=== PATIENT | male | born 1950 | race Caucasian/White ===

== ENCOUNTER → 2016-11-27 | Outpatient (CLI) | payer OTHER ==
[~2016-11-27] MED LIST: CEPH-368 PO; GABA300C10 PO; HYDR2TAB40 PO; METF10002 PO; ONDA4TAB7 PO; OXYC-302 PO; OXYC1TAB7 PO; SAXA5TAB PO
[2016-11-27 15:43] LABS: BLOOD UREA NITROGEN 22 mg/dL (7-18)
[2016-11-27 15:47] LABS: ASPARTATE AMINO TRANSFERASE 18 U/L (15-37)
== END | disposition home or self-care (01) ==
LOC: STAR 14:53
PROVIDERS: ATTEND Orthopaedic Surgery Orthopaedic Surgery of the Spine
DX: Z01.818 Encounter for other preprocedural examination (principal); I51.5 Myocardial degeneration
CPT/HCPCS: 36415; 71020; 80053; 81003; 85025; 85610; 85730; 93005

== ENCOUNTER 2016-12-02 08:51 | Day surgery (SDC) | payer OTHER ==
[2016-11-30 09:49] VITALS: BP 136/82
[~2016-12-02] VITALS: Ht 167.6 cm; Wt 84.0 kg
[~2016-12-02 08:51] MED LIST changes: +ATOR10TA9 PO; +BUPIVACAINE/PF-EPI 0.25% 1:200K ONE; +CHOL20003 PO; +CYAN10005 PO; +GLIP5TAB10 PO; +LIDOCAINE 0.5%-EPI 1:200K, 50ML ONE; +THROMBIN 5,000 UNIT VIAL TP ONE; +VANCOMYCIN 1,000 MG ONE
[2016-12-02] MEDS ORDERED: LACTATED RINGERS 1,000 ML IV SCH (09:24)
[2016-12-02 09:30] VITALS: BP 136/82
[2016-12-02] MEDS ORDERED: FENTANYL PF 250 MCG/5ML ONE (09:41)
[2016-12-02] MEDS ORDERED: PROPOFOL 10 MG/ML, 20ML ONE (10:32)
[2016-12-02] MEDS ORDERED: CEFAZOLIN 1,000 MG ONE (10:32)
[2016-12-02] MEDS ORDERED: ROCURONIUM 10 MG/ML ONE (10:32)
[2016-12-02] MEDS ORDERED: DEXAMETHASONE 4 MG/ML, 1ML ONE (10:32)
[2016-12-02] MEDS ORDERED: ONDANSETRON 2MG/ML, 2ML ONE (10:32)
[2016-12-02] MEDS ORDERED: MEPERIDINE/PF 25MG/0.5ML IVPush PRN (12:30)
[2016-12-02] MEDS ORDERED: hydrALAzine 20 MG/ML, 1ML IV PRN (12:30)
[2016-12-02] MEDS ORDERED: METOPROLOL 1 MG/ML, 5ML IV PRN (12:30)
[2016-12-02] MEDS ORDERED: HYDROcodone/APAP 7.5-325MG/15ML UDC PO PRN (12:30)
[2016-12-02] MEDS ORDERED: ACETAMINOPHEN 325 MG TABLET PO PRN (12:30)
[2016-12-02] MEDS ORDERED: ALBUTEROL/IPRATROPIUM 2.5MG/0.5MG, 3 ML NPPB PRN (12:30)
[2016-12-02] MEDS ORDERED: FENTANYL PF 100 MCG/2ML ONE ×2 (13:14→14:51)
[2016-12-02] MEDS ORDERED: HYDROcodone/APAP 7.5-325MG/15ML UDC ONE (13:15)
[2016-12-02] MEDS: FENTANYL PF 100 MCG/2ML IV PRN ×4 (13:18→15:03)
[2016-12-02] MEDS: HYDROmorphone 1 MG/ML, 1ML IV PRN ×4 (13:21→14:05)
[2016-12-02] MEDS ORDERED: DIAZEPAM 5 MG/ML, 2ML ONE (13:22)
[2016-12-02] MEDS ORDERED: HYDROmorphone 1 MG/ML, 1ML ONE ×2 (13:28→13:45)
[2016-12-02] MEDS ORDERED: DIAZEPAM 5 MG/ML, 2ML IV PRN ×2 (13:30→14:30)
[2016-12-02] MEDS ORDERED: hydrALAzine 20 MG/ML, 1ML ONE (14:25)
[2016-12-02] MEDS ORDERED: OXYcodone/APAP 10/325MG TABLET ONE (17:05)
[2016-12-02] MEDS ORDERED: ONDANSETRON 2MG/ML, 2ML IVPush PRN (17:30)
[2016-12-02] MEDS ORDERED: OXYcodone/APAP 10/325MG TABLET PO PRN (17:30)
== END 2016-12-02 18:50 | disposition home or self-care (01) ==
LOC: OUT 08:51
PROVIDERS: ATTEND Orthopaedic Surgery Orthopaedic Surgery of the Spine
DX: M51.16 Intervertebral disc disorders with radiculopathy, lumbar region (principal); E78.5 Hyperlipidemia, unspecified; E11.9 Type 2 diabetes mellitus without complications; Z88.3 Allergy status to other anti-infective agents; M19.90 Unspecified osteoarthritis, unspecified site; Z79.84 Long term (current) use of oral hypoglycemic drugs
CPT/HCPCS: 63030; 63042; 72100; 82962; J0360; J0690; J1100; J1170; J2405; J2704; J3010; J3360; J3370; J7120

== ENCOUNTER 2018-06-28 05:08 | Inpatient (IN) | payer MEDICARE ==
[~2018-06-28] VITALS: Ht 167.6 cm; Wt 78.9 kg
[~2018-06-28 05:08] MED LIST changes: -BUPIVACAINE/PF-EPI 0.25% 1:200K ONE; +CHOL2000 PO; -CHOL20003 PO; -LIDOCAINE 0.5%-EPI 1:200K, 50ML ONE; +LISI2.5T PO; +TAMS-11 PO; -THROMBIN 5,000 UNIT VIAL TP ONE; -VANCOMYCIN 1,000 MG ONE
[2018-06-28] MEDS ORDERED: HYDROmorphone 2 MG/ML, 1ML ONE ×2 (05:24→07:22)
[2018-06-28] MEDS ORDERED: ACETAMINOPHEN 325 MG TABLET ONE (05:24)
[2018-06-28] MEDS ORDERED: HYDROmorphone 2 MG/ML, 1ML IV ONE ×2 (05:30→07:30)
[2018-06-28] MEDS ORDERED: SODIUM CHLORIDE 0.9% 1,000ML IVBOLUS ONE ×2 (05:30→06:30)
[2018-06-28] MEDS ORDERED: ACETAMINOPHEN 325 MG TABLET PO ONE (05:30)
[2018-06-28 05:57] LABS: HCT (SEDRATE) 36.6 % (39.2-51.8)
[2018-06-28 05:58] LABS: MEAN CORPUSCULAR HEMOGLOBIN 29.3 pg (27.5-34.5); MEAN CORPUSCULAR HGB CONC 33.5 g/dL (33.2-36.2); MEAN CORPUSCULAR VOLUME 87.3 fL (81-97); MEAN PLATELET VOLUME 7.1 fL (7.4-10.4); PLATELET COUNT 532 x10^3/uL (130-400); RED BLOOD COUNT 4.27 x10^6/uL (4.38-5.82); RED CELL DISTRIBUTION WIDTH 12.4 % (9.4-14.8)
[2018-06-28 06:08] LABS: ALANINE AMINOTRANSFERASE 20 U/L (12-78); ALBUMIN 3.4 g/dL (3.4-5.0); ANION GAP 11 mmol/L (5-15); CALCIUM 9.4 mg/dL (8.5-10.1); CHLORIDE 104 mmol/L (98-107); CREATININE 1.03 mg/dL (0.7-1.3)
[2018-06-28 06:15] LABS: ALKALINE PHOSPHATASE 89 U/L (45-117); BILIRUBIN,TOTAL 0.5 mg/dL (0.2-1.0); TOTAL PROTEIN 7.6 g/dL (6.4-8.2)
[2018-06-28] MEDS ORDERED: CEFTRIAXONE PMX 1GM/50ML 50 ML ONE (06:16)
[2018-06-28 06:17] LABS: CULTURE INDICATED? YES; MICROSCOPIC AUTO
[2018-06-28 06:30] LABS: RAPID INFLUENZA A Negative (Negative); RAPID INFLUENZA B Negative (Negative)
[2018-06-28] MEDS ORDERED: CEFTRIAXONE PMX 1GM/50ML 50 ML IV ONE (06:30)
[2018-06-28 06:32] LABS: MD YES
[2018-06-28 06:36] LABS: BAND#(MANUAL) 1.76 x10^3/uL; BANDS%(MANUAL) 7 % (0-7); EOS#(MANUAL) 0.25 x10^3/uL (0.0-0.4); EOS% (MANUAL) 1 % (1-7); LYMPH#(MANUAL) 0.75 x10^3/uL (1-3.4); LYMPHS% (MANUAL) 3 % (22-44); MONOS% (MANUAL) 4 % (2-9); SEG#(MANUAL) 21.34 x10^3/uL (1.8-6.8); SEGS% (MANUAL) 85 % (42-75)
[2018-06-28 06:37] LABS: <RBC MORPHOLOGY> NORMAL
[2018-06-28 06:38] LABS: <PLATELET ESTIMATE> INCREASED; <PLT MORPHOLOGY> NORMAL PLT MORPH
[2018-06-28] MEDS ORDERED: OMEG1CAP57 PO (06:49)
[2018-06-28] MEDS ORDERED: ASPI-496 PO (06:49)
[2018-06-28] MEDS ORDERED: SODIUM CHLORIDE 0.9% 1,000 ML IV ONE (07:30)
[2018-06-28] MEDS ORDERED: HYDROcodone/APAP 5/325 TABLET PO PRN (09:00)
[2018-06-28] MEDS ORDERED: VANCOMYCIN PER PHARMACY MC PRN ×2 (09:00→10:30)
[2018-06-28] MEDS ORDERED: ACETAMINOPHEN 325 MG TABLET PO PRN (09:00)
[2018-06-28] MEDS ORDERED: DOCUSATE 100 MG CAPSULE PO PRN (09:00)
[2018-06-28] MEDS ORDERED: ONDANSETRON 2MG/ML, 2ML IVPush PRN (09:00)
[2018-06-28 09:30] VITALS: BP 118/74
[2018-06-28] MEDS: ASPIRIN 81 MG TABLET EC PO SCH (09:30)
[2018-06-28] MEDS: TAMSULOSIN 0.4 MG CAP.ER.24H PO SCH (10:21)
[2018-06-28] MEDS: ENOXAPARIN 40 MG/0.4 ML SQ SCH (10:22)
[2018-06-28] MEDS: SODIUM CHLORIDE 0.9% 1,000 ML IV SCH ×2 (10:22→19:44)
[2018-06-28] MEDS ORDERED: PHARMACOKINETIC MONITORING MC PRN (10:30)
[2018-06-28] MEDS ORDERED: PHARMACOKINETIC CONSULTATION MC ONE (10:30)
[2018-06-28] MEDS: PIPERACILLIN/TAZO/PMX 3.375GM 50 ML IV SCH ×3 (10:57→22:39)
[2018-06-28] MEDS ORDERED: VANCOMYCIN 1,400 MG in SODIUM CHLORIDE 0.9% 250 ML IV SCH (11:00)
[2018-06-28 11:56] LABS: TROPONIN I < 0.015 ng/mL (0.000-0.045)
[2018-06-28 12:54] VITALS: BP 106/70
[2018-06-28] MEDS: INSULIN LISPRO 100 UNITS/ML, PEN SQ-INSULIN SCH ×3 (13:01→20:54)
[2018-06-28] MEDS: morphine SULFATE 10 MG/ML, 1ML IVPush PRN (16:37)
[2018-06-28] MEDS: CHOLECALCIFEROL 1,000 UNIT TABLET PO SCH (20:54)
[2018-06-28] MEDS: OXYcodone/APAP 5/325MG TABLET PO PRN (20:54)
[2018-06-28] MEDS: ATORVASTATIN 10 MG TABLET PO SCH (20:55)
[2018-06-28 21:34] VITALS: BP 145/75
[2018-06-29 00:31] VITALS: BP 128/74
[2018-06-29] MEDS: SODIUM CHLORIDE 0.9% 1,000 ML IV SCH ×3 (02:41→18:07)
[2018-06-29 04:19] VITALS: BP 126/81
[2018-06-29] MEDS: PIPERACILLIN/TAZO/PMX 3.375GM 50 ML IV SCH ×4 (04:46→23:30)
[2018-06-29] MEDS: ASPIRIN 81 MG TABLET EC PO SCH (04:47)
[2018-06-29] MEDS: OXYcodone/APAP 5/325MG TABLET PO PRN ×3 (04:47→19:30)
[2018-06-29 05:37] LABS: MEAN CORPUSCULAR HEMOGLOBIN 29.4 pg (27.5-34.5); MEAN CORPUSCULAR HGB CONC 33.3 g/dL (33.2-36.2); MEAN CORPUSCULAR VOLUME 88.1 fL (81-97); MEAN PLATELET VOLUME 7.3 fL (7.4-10.4); PLATELET COUNT 500 x10^3/uL (130-400); RED BLOOD COUNT 3.85 x10^6/uL (4.38-5.82)
[2018-06-29 05:43] LABS: CHLORIDE 106 mmol/L (98-107)
[2018-06-29 05:51] LABS: ALANINE AMINOTRANSFERASE 18 U/L (12-78); ALBUMIN 2.6 g/dL (3.4-5.0); ALKALINE PHOSPHATASE 62 U/L (45-117); ANION GAP 8 mmol/L (5-15); BILIRUBIN,TOTAL 0.6 mg/dL (0.2-1.0); CALCIUM 8.7 mg/dL (8.5-10.1); CREATININE 1.02 mg/dL (0.7-1.3); TOTAL PROTEIN 6.3 g/dL (6.4-8.2)
[2018-06-29 06:07] LABS: BASOPHILS % (AUTO) 0 % (0-1); EOSINOPHILS % (AUTO) 1 % (1-7); LYMPHOCYTES # (AUTO) 1.98 x10^3/uL (1-3.4); LYMPHOCYTES % (AUTO) 7 % (22-44); MONOCYTES # (AUTO) 1.58 x10^3/uL (0.2-0.8); MONOCYTES % (AUTO) 6 % (2-9); NEUTROPHILS # (AUTO) 23.33 x10^3/uL (1.8-6.8); NEUTROPHILS % (AUTO) 86 % (42-75)
[2018-06-29] MEDS: VANCOMYCIN 1,400 MG in SODIUM CHLORIDE 0.9% 250 ML IV SCH (06:38)
[2018-06-29 06:45] LABS: EOSINOPHILS # (AUTO) 0.18 x10^3/uL (0-0.4); MD SCAN
[2018-06-29 07:00] VITALS: BP 112/76
[2018-06-29] MEDS: TAMSULOSIN 0.4 MG CAP.ER.24H PO SCH (08:25)
[2018-06-29] MEDS: ENOXAPARIN 40 MG/0.4 ML SQ SCH ×2 (08:25→14:00)
[2018-06-29] MEDS: INSULIN LISPRO 100 UNITS/ML, PEN SQ-INSULIN SCH ×4 (08:25→21:26)
[2018-06-29] MEDS: CHOLECALCIFEROL 1,000 UNIT TABLET PO SCH ×2 (08:25→21:27)
[2018-06-29] MEDS: morphine SULFATE 10 MG/ML, 1ML IVPush PRN ×2 (12:15→19:31)
[2018-06-29] MEDS ORDERED: GADOBUTROL 7.5 MMOL/7.5 ML PFS ONE (12:35)
[2018-06-29 13:40] VITALS: BP 124/70
[2018-06-29 19:50] VITALS: BP 134/81
[2018-06-29] MEDS: INSULIN GLARGINE 100 UNITS/ML, PEN SQ-INSULIN SCH (21:27)
[2018-06-29] MEDS: ATORVASTATIN 10 MG TABLET PO SCH (21:27)
[2018-06-30] MEDS: VANCOMYCIN 1,400 MG in SODIUM CHLORIDE 0.9% 250 ML IV SCH (00:55)
[2018-06-30] MEDS: OXYcodone/APAP 5/325MG TABLET PO PRN ×3 (00:57→20:57)
[2018-06-30 01:02] VITALS: BP 148/73
[2018-06-30] MEDS: ASPIRIN 81 MG TABLET EC PO SCH (04:48)
[2018-06-30] MEDS: PIPERACILLIN/TAZO/PMX 3.375GM 50 ML IV SCH ×2 (04:48→10:57)
[2018-06-30] MEDS: SODIUM CHLORIDE 0.9% 1,000 ML IV SCH (04:49)
[2018-06-30 06:01] LABS: BASOPHILS # (AUTO) 0.08 x10^3/uL (0-0.1); BASOPHILS % (AUTO) 1 % (0-1); EOSINOPHILS # (AUTO) 0.15 x10^3/uL (0-0.4); EOSINOPHILS % (AUTO) 1 % (1-7); LYMPHOCYTES % (AUTO) 9 % (22-44); MD NO; MEAN CORPUSCULAR HEMOGLOBIN 30.3 pg (27.5-34.5); MEAN CORPUSCULAR HGB CONC 34.7 g/dL (33.2-36.2); MEAN CORPUSCULAR VOLUME 87.4 fL (81-97); MEAN PLATELET VOLUME 7.3 fL (7.4-10.4); MONOCYTES # (AUTO) 0.86 x10^3/uL (0.2-0.8); MONOCYTES % (AUTO) 7 % (2-9); NEUTROPHILS # (AUTO) 10.72 x10^3/uL (1.8-6.8); NEUTROPHILS % (AUTO) 82 % (42-75); PLATELET COUNT 424 x10^3/uL (130-400); RED BLOOD COUNT 3.64 x10^6/uL (4.38-5.82); RED CELL DISTRIBUTION WIDTH 12.8 % (9.4-14.8)
[2018-06-30 06:08] LABS: ALBUMIN 2.5 g/dL (3.4-5.0); ANION GAP 7 mmol/L (5-15); CALCIUM 8.2 mg/dL (8.5-10.1); CHLORIDE 106 mmol/L (98-107); CREATININE 0.99 mg/dL (0.7-1.3)
[2018-06-30] MEDS: INSULIN LISPRO 100 UNITS/ML, PEN SQ-INSULIN SCH ×4 (07:00→21:00)
[2018-06-30] MEDS: POTASSIUM CHLORIDE 20 MEQ PACKET PO SCH (07:55)
[2018-06-30] MEDS: CHOLECALCIFEROL 1,000 UNIT TABLET PO SCH ×2 (08:36→20:57)
[2018-06-30] MEDS: TAMSULOSIN 0.4 MG CAP.ER.24H PO SCH (08:36)
[2018-06-30 08:38] VITALS: BP 145/81
[2018-06-30] MEDS ORDERED: MEROPENEM 1 GM in SODIUM CHLORIDE 0.9% 100 ML IV SCH (12:00)
[2018-06-30] MEDS: ENOXAPARIN 40 MG/0.4 ML SQ SCH (14:06)
[2018-06-30 15:30] VITALS: BP 159/84
[2018-06-30] MEDS ORDERED: LEVOFLOXACIN 500 MG TABLET PO SCH (18:00)
[2018-06-30 19:33] VITALS: BP 149/85
[2018-06-30] MEDS: ATORVASTATIN 10 MG TABLET PO SCH (20:57)
[2018-06-30] MEDS: INSULIN GLARGINE 100 UNITS/ML, PEN SQ-INSULIN SCH (20:59)
[2018-07-01 01:44] VITALS: BP 144/82
[2018-07-01 05:57] LABS: BASOPHILS # (AUTO) 0.04 x10^3/uL (0-0.1); BASOPHILS % (AUTO) 0 % (0-1); EOSINOPHILS # (AUTO) 0.25 x10^3/uL (0-0.4); EOSINOPHILS % (AUTO) 3 % (1-7); LYMPHOCYTES # (AUTO) 1.35 x10^3/uL (1-3.4); LYMPHOCYTES % (AUTO) 14 % (22-44); MD NO; MEAN CORPUSCULAR VOLUME 87.7 fL (81-97); MEAN PLATELET VOLUME 7.3 fL (7.4-10.4); MONOCYTES # (AUTO) 1.29 x10^3/uL (0.2-0.8); MONOCYTES % (AUTO) 14 % (2-9); NEUTROPHILS # (AUTO) 6.53 x10^3/uL (1.8-6.8); NEUTROPHILS % (AUTO) 69 % (42-75); PLATELET COUNT 457 x10^3/uL (130-400); RED BLOOD COUNT 4.07 x10^6/uL (4.38-5.82); RED CELL DISTRIBUTION WIDTH 12.9 % (9.4-14.8)
[2018-07-01] MEDS: ASPIRIN 81 MG TABLET EC PO SCH (06:31)
[2018-07-01] MEDS: POTASSIUM CHLORIDE 20 MEQ PACKET PO SCH (07:29)
[2018-07-01] MEDS: INSULIN LISPRO 100 UNITS/ML, PEN SQ-INSULIN SCH (07:30)
[2018-07-01] MEDS ORDERED: LEVO500T47 PO (07:46)
[2018-07-01] MEDS: TAMSULOSIN 0.4 MG CAP.ER.24H PO SCH (08:33)
[2018-07-01] MEDS: CHOLECALCIFEROL 1,000 UNIT TABLET PO SCH (08:33)
[2018-07-01] MEDS: OXYcodone/APAP 5/325MG TABLET PO PRN (08:34)
[2018-07-01] MEDS ORDERED: LISINOPRIL 5 MG TABLET PO SCH (09:00)
[2018-07-01 09:03] VITALS: BP 121/79
== END 2018-07-01 09:25 | disposition home or self-care (01) | DRG 698 ==
LOC: ED 06:05 → EDIP 08:02 → 4NOR 09:10 → DCLOUNGE 07-01 09:15
PROVIDERS: ADMIT Internal Medicine; ATTEND Internal Medicine
PROC: 0TPBX0Z Removal of Drainage Device from Bladder, External Approach (ICD-10-PCS; principal; 2018-06-28)
PROC: 0T9B70Z Drainage of Bladder with Drainage Device, Via Natural or Artificial Opening (ICD-10-PCS; 2018-06-28)
DX: T83.518A Infection and inflammatory reaction due to other urinary catheter, initial encounter (principal); A41.9 Sepsis, unspecified organism; E43 Unspecified severe protein-calorie malnutrition; R65.20 Severe sepsis without septic shock; B96.5 Pseudomonas (aeruginosa) (mallei) (pseudomallei) as the cause of diseases classified elsewhere; E78.5 Hyperlipidemia, unspecified; E11.9 Type 2 diabetes mellitus without complications; Y84.6 Urinary catheterization as the cause of abnormal reaction of the patient, or of later complication, without mention of misadventure at the time of the procedure; N40.0 Benign prostatic hyperplasia without lower urinary tract symptoms; I10 Essential (primary) hypertension; N30.90 Cystitis, unspecified without hematuria; G89.29 Other chronic pain; E87.6 Hypokalemia; Z98.1 Arthrodesis status; Z79.899 Other long term (current) drug therapy; Z79.82 Long term (current) use of aspirin; Z79.1 Long term (current) use of non-steroidal anti-inflammatories (NSAID); Z88.1 Allergy status to other antibiotic agents; Z68.28 Body mass index [BMI] 28.0-28.9, adult
CPT/HCPCS: 36415; 71045; 72156; 80048; 80053; 81001; 82040; 82962; 83605; 84145; 84484; 85025; 85651; 86140; 87040; 87077; 87086; 87186; 87400; 93005; 96361; 96374; 99291; A9585; G0378; J0696; J1170; J1650; J2185; J2405; J2543; J3370; J1815; J2270; J7030; J7050

== ENCOUNTER 2018-09-14 08:00 | Outpatient (CLI) | payer MEDICARE ==
[~2018-09-14 08:00] MED LIST changes: +ASPI-496 PO; +LEVO500T47 PO; +OMEG1CAP57 PO
[2018-09-14 12:18] LABS: MICROSCOPIC AUTO
[2018-09-14 12:18] LABS: BASOPHILS # (AUTO) 0.06 x10^3/uL (0-0.1); BASOPHILS % (AUTO) 1 % (0-1); EOSINOPHILS # (AUTO) 0.09 x10^3/uL (0-0.4); EOSINOPHILS % (AUTO) 1 % (1-7); LYMPHOCYTES # (AUTO) 2.31 x10^3/uL (1-3.4); LYMPHOCYTES % (AUTO) 25 % (22-44); MD NO; MEAN CORPUSCULAR HEMOGLOBIN 28.5 pg (27.5-34.5); MEAN CORPUSCULAR HGB CONC 33.3 g/dL (33.2-36.2); MEAN CORPUSCULAR VOLUME 85.7 fL (81-97); MEAN PLATELET VOLUME 7.6 fL (7.4-10.4); MONOCYTES # (AUTO) 0.93 x10^3/uL (0.2-0.8); MONOCYTES % (AUTO) 10 % (2-9); NEUTROPHILS # (AUTO) 6.06 x10^3/uL (1.8-6.8); NEUTROPHILS % (AUTO) 64 % (42-75); PLATELET COUNT 456 x10^3/uL (130-400); RED BLOOD COUNT 4.78 x10^6/uL (4.38-5.82); RED CELL DISTRIBUTION WIDTH 15.6 % (9.4-14.8)
[2018-09-14 12:20] LABS: CULTURE INDICATED? NO
[2018-09-14 12:25] LABS: INTERNATIONAL NORMALIZED RATIO 1.01 (0.93-1.1); PROTHROMBIN TIME 10.6 Seconds (9.6-11.5)
[2018-09-14 12:33] LABS: ALANINE AMINOTRANSFERASE 28 U/L (12-78); ALBUMIN 3.8 g/dL (3.4-5.0); ANION GAP 5 mmol/L (5-15); CALCIUM 9.2 mg/dL (8.5-10.1); CHLORIDE 106 mmol/L (98-107); CREATININE 1.11 mg/dL (0.7-1.3)
[2018-09-14 12:35] LABS: ALKALINE PHOSPHATASE 87 U/L (45-117); BILIRUBIN,TOTAL 0.2 mg/dL (0.2-1.0); TOTAL PROTEIN 7.9 g/dL (6.4-8.2)
[2018-09-21] MEDS ORDERED: BUPIVACAINE/PF 0.25% ONE (06:59)
[2018-09-21] MEDS ORDERED: VANCOMYCIN 1,000 MG ONE (07:00)
[2018-09-21] MEDS ORDERED: TOBRAMYCIN SULFATE 1.2 GM IMP ONE (07:00)
[2018-09-21] MEDS ORDERED: EPINEPHRINE 1 MG/ML, 1ML ONE (07:00)
[2018-09-21] MEDS ORDERED: VANCOMYCIN 500 MG ONE (07:00)
[2018-09-21] MEDS ORDERED: LIDOCAINE/PF 0.5% ,50ML ONE (07:00)
[2018-09-21] MEDS ORDERED: THROMBIN 5,000 UNIT VIAL TP ONE (07:00)
== END 2018-09-14 23:59 | disposition home or self-care (01) ==
LOC: STAR 08:00
PROVIDERS: ATTEND Orthopaedic Surgery Orthopaedic Surgery of the Spine
DX: Z01.818 Encounter for other preprocedural examination (principal); M48.061 Spinal stenosis, lumbar region without neurogenic claudication
CPT/HCPCS: 36415; 71046; 80053; 81001; 85025; 85610; 85730; 93005; J0171; J2001; J3260; J3370; J3490

== ENCOUNTER 2018-09-21 09:03 | Inpatient (IN) | payer MEDICARE ==
[~2018-09-21] VITALS: Ht 167.6 cm; Wt 80.0 kg
[~2018-09-21 09:03] MED LIST changes: +HEPARIN 1,000 UNITS/ML, 30ML ONE
[2018-09-21] MEDS ORDERED: LACTATED RINGERS 1,000 ML IV SCH (09:27)
[2018-09-21] MEDS ORDERED: LABETALOL 5MG/ML, 20ML IV PRN (09:30)
[2018-09-21] MEDS ORDERED: MIDAZOLAM 1 MG/ML, 2ML IV PRN (09:30)
[2018-09-21] MEDS ORDERED: MEPERIDINE/PF 25MG/0.5ML IVPush PRN (09:30)
[2018-09-21] MEDS ORDERED: ONDANSETRON 2MG/ML, 2ML IVPush PRN (09:30)
[2018-09-21] MEDS ORDERED: OXYcodone 5 MG/5 ML ORAL.SOL UDC PO PRN (09:30)
[2018-09-21] MEDS ORDERED: MIDAZOLAM 1 MG/ML, 2ML ONE (09:59)
[2018-09-21] MEDS ORDERED: FENTANYL PF 100 MCG/2ML ONE ×3 (10:00→13:33)
[2018-09-21] MEDS ORDERED: GABAPENTIN 300 MG CAPSULE PO ONE (10:00)
[2018-09-21] MEDS ORDERED: METOCLOPRAMIDE 5 MG/ML, 2ML ONE ×2 (10:00→13:55)
[2018-09-21] MEDS ORDERED: KETAMINE 100 MG/ML, 5ML ONE (10:00)
[2018-09-21] MEDS ORDERED: ROCURONIUM 10 MG/ML,10ML ONE (10:00)
[2018-09-21] MEDS ORDERED: OXYcodone IR 5MG TABLET PO ONE (10:00)
[2018-09-21] MEDS ORDERED: PROPOFOL 10 MG/ML, 20ML ONE (10:00)
[2018-09-21] MEDS ORDERED: CEFAZOLIN 1,000 MG ONE (10:00)
[2018-09-21] MEDS ORDERED: ONDANSETRON 2MG/ML, 2ML ONE (10:00)
[2018-09-21] MEDS ORDERED: ACETAMINOPHEN 500 MG TABLET PO ONE (10:00)
[2018-09-21] MEDS ORDERED: LIDOCAINE PF 2%, 5ML ONE (10:00)
[2018-09-21] MEDS ORDERED: DEXAMETHASONE 4 MG/ML, 5ML ONE (10:00)
[2018-09-21] MEDS ORDERED: FAMOTIDINE 20 MG TABLET PO ONE (10:00)
[2018-09-21] MEDS ORDERED: OXYcodone 5 MG/5 ML ORAL.SOL UDC ONE (13:33)
[2018-09-21] MEDS: FENTANYL PF 100 MCG/2ML IV PRN ×3 (13:40→13:52)
[2018-09-21] MEDS ORDERED: HYDROmorphone 1 MG/ML, 1ML AMP ONE (13:56)
[2018-09-21] MEDS ORDERED: METOCLOPRAMIDE 5 MG/ML, 2ML IVPush ONE (14:00)
[2018-09-21] MEDS: HYDROmorphone 1 MG/ML, 1ML AMP IV PRN ×3 (14:00→14:30)
[2018-09-21] MEDS: METHOCARBAMOL 1,000 MG in DEXTROSE 5% 100 ML IV ONE ×2 (14:00→14:23)
[2018-09-21 15:45] VITALS: BP 145/76
[2018-09-21] MEDS ORDERED: PROMETHAZINE 25 MG/ML, 1ML IM PRN (16:30)
[2018-09-21] MEDS ORDERED: DIPHENHYDRAMINE 50 MG/ML, 1ML IVPush PRN (16:30)
[2018-09-21] MEDS ORDERED: BISACODYL 10 MG SUPP PR PRN (16:30)
[2018-09-21] MEDS ORDERED: ONDANSETRON 2MG/ML, 2ML IV PRN (16:30)
[2018-09-21] MEDS ORDERED: MAGNESIUM HYDROXIDE 8%, 30ML UDC PO PRN (16:30)
[2018-09-21] MEDS ORDERED: HYDROmorphone 2 MG/ML, 1ML IVPush PRN (16:30)
[2018-09-21] MEDS ORDERED: HYDROcodone/APAP 5/325 TABLET PO PRN (16:30)
[2018-09-21] MEDS: metFORMIN 500 MG TABLET PO SCH (17:33)
[2018-09-21] MEDS: D5%-0.9% NACL+KCL 20MEQ 1,000 ML IV SCH (17:33)
[2018-09-21] MEDS: CEFAZOLIN PMX 1GM/50ML 50 ML IVPB SCH (17:33)
[2018-09-21] MEDS: OXYcodone/APAP 5/325MG TABLET PO PRN ×2 (17:43→21:34)
[2018-09-21] MEDS ORDERED: GLUCAGON 1 MG IM PRN (18:30)
[2018-09-21] MEDS ORDERED: DEXTROSE 4 GM TAB.CHEW PO PRN (18:30)
[2018-09-21] MEDS ORDERED: DEXTROSE 50%, 50ML SYRINGE IVPush PRN (18:30)
[2018-09-21 18:38] VITALS: BP 136/75
[2018-09-21] MEDS: METOCLOPRAMIDE 5 MG/ML, 2ML IV SCH (19:31)
[2018-09-21] MEDS: ATORVASTATIN 10 MG TABLET PO SCH (20:55)
[2018-09-21] MEDS: SODIUM CHLORIDE FLUSH 10ML SYR IVF SCH (21:00)
[2018-09-21] MEDS: INSULIN LISPRO 100 UNITS/ML, PEN SQ-INSULIN SCH (21:35)
[2018-09-21] MEDS: METHOCARBAMOL 750 MG in DEXTROSE 5% 100 ML IV SCH (22:47)
[2018-09-22 00:14] VITALS: BP 130/75
[2018-09-22] MEDS: CEFAZOLIN PMX 1GM/50ML 50 ML IVPB SCH (01:38)
[2018-09-22] MEDS: OXYcodone/APAP 5/325MG TABLET PO PRN ×6 (01:38→22:02)
[2018-09-22] MEDS: METOCLOPRAMIDE 5 MG/ML, 2ML IV SCH ×4 (02:00→20:00)
[2018-09-22] MEDS: D5%-0.9% NACL+KCL 20MEQ 1,000 ML IV SCH ×3 (02:18→22:30)
[2018-09-22 04:04] VITALS: BP 109/55
[2018-09-22 05:06] LABS: BASOPHILS % (AUTO) 0 % (0-1); EOSINOPHILS % (AUTO) 0 % (1-7); LYMPHOCYTES % (AUTO) 8 % (22-44); MD NO; MEAN CORPUSCULAR HEMOGLOBIN 28.9 pg (27.5-34.5); MEAN CORPUSCULAR HGB CONC 33.6 g/dL (33.2-36.2); MEAN CORPUSCULAR VOLUME 85.9 fL (81-97); MEAN PLATELET VOLUME 7.9 fL (7.4-10.4); MONOCYTES # (AUTO) 1.01 x10^3/uL (0.2-0.8); MONOCYTES % (AUTO) 7 % (2-9); NEUTROPHILS # (AUTO) 12.69 x10^3/uL (1.8-6.8); NEUTROPHILS % (AUTO) 86 % (42-75); PLATELET COUNT 410 x10^3/uL (130-400); RED BLOOD COUNT 4.21 x10^6/uL (4.38-5.82); RED CELL DISTRIBUTION WIDTH 15.1 % (9.4-14.8)
[2018-09-22 05:13] LABS: CHLORIDE 105 mmol/L (98-107)
[2018-09-22 05:26] LABS: ALANINE AMINOTRANSFERASE 18 U/L (12-78); ALBUMIN 3.1 g/dL (3.4-5.0); ALKALINE PHOSPHATASE 66 U/L (45-117); BILIRUBIN,TOTAL 1.1 mg/dL (0.2-1.0); CALCIUM 8.2 mg/dL (8.5-10.1); CREATININE 1.15 mg/dL (0.7-1.3); TOTAL PROTEIN 6.2 g/dL (6.4-8.2)
[2018-09-22 05:39] LABS: ANION GAP 7 mmol/L (5-15)
[2018-09-22] MEDS ORDERED: LEVOTHYROXINE 137 MCG TABLET PO SCH (06:00)
[2018-09-22] MEDS: METHOCARBAMOL 750 MG in DEXTROSE 5% 100 ML IV SCH ×3 (06:11→23:52)
[2018-09-22] MEDS: ENOXAPARIN 30 MG/0.3 ML SQ SCH ×2 (06:11→18:00)
[2018-09-22 06:25] VITALS: BP 144/76
[2018-09-22] MEDS: metFORMIN 500 MG TABLET PO SCH ×2 (07:42→15:46)
[2018-09-22] MEDS: SENNA/DOCUSATE TABLET PO SCH ×2 (07:42→21:47)
[2018-09-22] MEDS: LINAGLIPTIN 5 MG TAB PO SCH (07:42)
[2018-09-22] MEDS: SODIUM CHLORIDE FLUSH 10ML SYR IVF SCH ×2 (07:43→22:02)
[2018-09-22] MEDS: INSULIN LISPRO 100 UNITS/ML, PEN SQ-INSULIN SCH ×4 (07:43→21:48)
[2018-09-22] MEDS: LISINOPRIL 5 MG TABLET PO SCH (07:45)
[2018-09-22] MEDS ORDERED: GLIPizide ER 2.5 MG TABLET PO SCH (08:00)
[2018-09-22] MEDS ORDERED: LISINOPRIL 5 MG TABLET PO SCH (09:00)
[2018-09-22] MEDS ORDERED: HYDROCHLOROTHIAZIDE 25 MG TABLET PO SCH (09:00)
[2018-09-22 14:14] VITALS: BP 116/60
[2018-09-22 19:12] VITALS: BP 133/71
[2018-09-22] MEDS ORDERED: DOCUSATE 100 MG CAPSULE PO SCH (21:00)
[2018-09-22] MEDS ORDERED: TAMSULOSIN 0.4 MG CAP.ER.24H PO SCH (21:00)
[2018-09-22] MEDS: ATORVASTATIN 10 MG TABLET PO SCH (21:45)
[2018-09-23 01:42] VITALS: BP 126/69
[2018-09-23] MEDS: METOCLOPRAMIDE 5 MG/ML, 2ML IV SCH ×2 (02:00→08:20)
[2018-09-23] MEDS: OXYcodone/APAP 5/325MG TABLET PO PRN ×3 (02:18→10:30)
[2018-09-23 05:38] LABS: CHLORIDE 107 mmol/L (98-107)
[2018-09-23 05:46] LABS: ALANINE AMINOTRANSFERASE 17 U/L (12-78); ALBUMIN 2.9 g/dL (3.4-5.0); ALKALINE PHOSPHATASE 66 U/L (45-117); BILIRUBIN,TOTAL 0.5 mg/dL (0.2-1.0); CALCIUM 8.2 mg/dL (8.5-10.1); CREATININE 0.94 mg/dL (0.7-1.3); TOTAL PROTEIN 6.4 g/dL (6.4-8.2)
[2018-09-23 06:10] LABS: MEAN CORPUSCULAR HEMOGLOBIN 28.3 pg (27.5-34.5); MEAN CORPUSCULAR HGB CONC 33.2 g/dL (33.2-36.2); MEAN CORPUSCULAR VOLUME 85.3 fL (81-97); MEAN PLATELET VOLUME 7.7 fL (7.4-10.4); PLATELET COUNT 381 x10^3/uL (130-400); RED BLOOD COUNT 4.21 x10^6/uL (4.38-5.82); RED CELL DISTRIBUTION WIDTH 15.9 % (9.4-14.8)
[2018-09-23] MEDS: ENOXAPARIN 30 MG/0.3 ML SQ SCH (06:20)
[2018-09-23] MEDS: METHOCARBAMOL 750 MG in DEXTROSE 5% 100 ML IV SCH (06:20)
[2018-09-23 06:25] LABS: ANION GAP 5 mmol/L (5-15)
[2018-09-23 06:49] VITALS: BP 123/74
[2018-09-23 06:51] LABS: BASOPHILS # (AUTO) 0.05 x10^3/uL (0-0.1); BASOPHILS % (AUTO) 0 % (0-1); EOSINOPHILS # (AUTO) 0.04 x10^3/uL (0-0.4); EOSINOPHILS % (AUTO) 0 % (1-7); LYMPHOCYTES # (AUTO) 1.88 x10^3/uL (1-3.4); LYMPHOCYTES % (AUTO) 13 % (22-44); MONOCYTES # (AUTO) 1.62 x10^3/uL (0.2-0.8); MONOCYTES % (AUTO) 11 % (2-9); NEUTROPHILS # (AUTO) 11.03 x10^3/uL (1.8-6.8); NEUTROPHILS % (AUTO) 76 % (42-75)
[2018-09-23 06:52] LABS: MD SCAN
[2018-09-23] MEDS: metFORMIN 500 MG TABLET PO SCH (08:26)
[2018-09-23] MEDS: LINAGLIPTIN 5 MG TAB PO SCH (08:26)
[2018-09-23] MEDS: SENNA/DOCUSATE TABLET PO SCH ×2 (08:27)
[2018-09-23] MEDS: LISINOPRIL 5 MG TABLET PO SCH (08:27)
[2018-09-23] MEDS: SODIUM CHLORIDE FLUSH 10ML SYR IVF SCH (08:27)
[2018-09-23] MEDS: D5%-0.9% NACL+KCL 20MEQ 1,000 ML IV SCH (08:27)
[2018-09-23] MEDS: INSULIN LISPRO 100 UNITS/ML, PEN SQ-INSULIN SCH ×2 (08:28→11:15)
[2018-09-23 10:45] VITALS: BP 132/73
[2018-09-23] MEDS ORDERED: ENOX40SY4 SQ (12:36)
[2018-09-23] MEDS ORDERED: METHOCARBAMOL 750 MG TABLET PO SCH (23:00)
== END 2018-09-23 12:47 | disposition home or self-care (01) | DRG 459 ==
LOC: ORIP 09:03 → 4NOR 15:53 → DCLOUNGE 09-23 12:47
PROVIDERS: ADMIT Orthopaedic Surgery Orthopaedic Surgery of the Spine; ATTEND Orthopaedic Surgery Orthopaedic Surgery of the Spine
PROC: 0SG00A0 Fusion of Lumbar Vertebral Joint with Interbody Fusion Device, Anterior Approach, Anterior Column, Open Approach (ICD-10-PCS; 2018-09-21)
PROC: 0SB20ZZ Excision of Lumbar Vertebral Disc, Open Approach (ICD-10-PCS; 2018-09-21)
PROC: 3E0U0GB Introduction of Recombinant Bone Morphogenetic Protein into Joints, Open Approach (ICD-10-PCS; 2018-09-21)
PROC: 4A11X4G Monitoring of Peripheral Nervous Electrical Activity, Intraoperative, External Approach (ICD-10-PCS; 2018-09-21)
PROC: 0SG00A0 Fusion of Lumbar Vertebral Joint with Interbody Fusion Device, Anterior Approach, Anterior Column, Open Approach (ICD-10-PCS; principal; 2018-09-21 11:00)
DX: M47.26 Other spondylosis with radiculopathy, lumbar region (principal); R53.2 Functional quadriplegia; E87.1 Hypo-osmolality and hyponatremia; M51.37 Other intervertebral disc degeneration, lumbosacral region; E11.9 Type 2 diabetes mellitus without complications; E78.5 Hyperlipidemia, unspecified; M19.90 Unspecified osteoarthritis, unspecified site; D63.8 Anemia in other chronic diseases classified elsewhere; R79.89 Other specified abnormal findings of blood chemistry; Z88.8 Allergy status to other drugs, medicaments and biological substances
CPT/HCPCS: 36415; 72100; 74018; 80053; 82962; 85025; 86850; 86900; 93005; C1713; G0378; J0171; J0690; J1100; J1170; J1644; J1650; J2001; J2250; J2405; J2704; J3010; J3260; J3370; J3490; C1762; J1815; J2765; J2800; J3480; J7120

== ENCOUNTER 2018-10-05 08:32 | Inpatient (IN) | payer MEDICARE ==
[~2018-10-05] VITALS: Ht 167.6 cm; Wt 75.0 kg
[~2018-10-05 08:32] MED LIST changes: +BUPIVACAINE/PF 0.25% ONE; +ENOX40SY4 SQ; +EPINEPHRINE 1 MG/ML, 1ML ONE; -HEPARIN 1,000 UNITS/ML, 30ML ONE; +LIDOCAINE/PF 0.5% ,50ML ONE; +THROMBIN 20,000 UNIT VIAL TP ONE; +TOBRAMYCIN SULFATE 1.2 GM IMP ONE; +VANCOMYCIN 1,000 MG ONE
[2018-10-05] MEDS ORDERED: OXYC-432 PO (09:25)
[2018-10-05 09:28] VITALS: BP 129/79
[2018-10-05] MEDS ORDERED: LACTATED RINGERS 1,000 ML IV SCH (09:56)
[2018-10-05] MEDS ORDERED: MIDAZOLAM 1 MG/ML, 2ML ONE (10:54)
[2018-10-05] MEDS ORDERED: FENTANYL PF 250 MCG/5ML ONE (10:54)
[2018-10-05] MEDS ORDERED: ONDANSETRON 2MG/ML, 2ML ONE (11:02)
[2018-10-05] MEDS ORDERED: ROCURONIUM 10 MG/ML,10ML ONE (11:02)
[2018-10-05] MEDS ORDERED: CEFAZOLIN 1,000 MG ONE (11:02)
[2018-10-05] MEDS ORDERED: METOPROLOL 1 MG/ML, 5ML ONE (11:02)
[2018-10-05] MEDS ORDERED: DEXAMETHASONE 4 MG/ML, 1ML ONE (11:02)
[2018-10-05] MEDS ORDERED: PROPOFOL 10 MG/ML, 20ML ONE (11:02)
[2018-10-05] MEDS ORDERED: LIDOCAINE 0.5%-EPI 1:200K, 50ML INFIL ONE (11:37)
[2018-10-05] MEDS ORDERED: MEPERIDINE/PF 25MG/0.5ML IVPush PRN (12:00)
[2018-10-05] MEDS ORDERED: ALBUTEROL SULFATE 2.5 MG/3 ML NPPB PRN (12:00)
[2018-10-05] MEDS ORDERED: DIAZEPAM 5 MG/ML, 2ML IVPush PRN (12:00)
[2018-10-05] MEDS ORDERED: LABETALOL 5MG/ML, 20ML IV PRN (12:00)
[2018-10-05] MEDS ORDERED: ACETAMINOPHEN 325 MG TABLET PO PRN (12:00)
[2018-10-05] MEDS ORDERED: hydrALAzine 20 MG/ML, 1ML IV PRN (12:00)
[2018-10-05] MEDS ORDERED: OXYcodone 5 MG/5 ML ORAL.SOL UDC PO PRN (12:00)
[2018-10-05] MEDS ORDERED: HYDROmorphone 2 MG/ML, 1ML IVPush PRN (12:00)
[2018-10-05] MEDS ORDERED: FENTANYL PF 100 MCG/2ML IV PRN (12:00)
[2018-10-05] MEDS ORDERED: PROMETHAZINE 25 MG/ML, 1ML IV PRN (12:00)
[2018-10-05] MEDS ORDERED: METHOCARBAMOL 750 MG in DEXTROSE 5% 100 ML IV ONE (14:30)
[2018-10-05 15:49] VITALS: BP 125/60
[2018-10-05] MEDS ORDERED: PROMETHAZINE 25 MG/ML, 1ML IM PRN (16:30)
[2018-10-05] MEDS ORDERED: ONDANSETRON 2MG/ML, 2ML IV PRN (16:30)
[2018-10-05] MEDS ORDERED: MAGNESIUM HYDROXIDE 8%, 30ML UDC PO PRN (16:30)
[2018-10-05] MEDS ORDERED: BISACODYL 10 MG SUPP PR PRN (16:30)
[2018-10-05] MEDS ORDERED: metFORMIN 500 MG TABLET PO SCH (17:00)
[2018-10-05] MEDS: D5%-0.9% NACL+KCL 20MEQ 1,000 ML IV SCH (17:06)
[2018-10-05] MEDS ORDERED: DEXTROSE 4 GM TAB.CHEW PO PRN (20:00)
[2018-10-05] MEDS ORDERED: DEXTROSE 50%, 50ML SYRINGE IVPush PRN (20:00)
[2018-10-05] MEDS ORDERED: GLUCAGON 1 MG IM PRN (20:00)
[2018-10-05] MEDS: CEFAZOLIN PMX 1GM/50ML 50 ML IVPB SCH (20:18)
[2018-10-05] MEDS: SODIUM CHLORIDE FLUSH 10ML SYR IVF SCH (21:00)
[2018-10-05 22:32] VITALS: BP 116/80
[2018-10-05] MEDS: ATORVASTATIN 10 MG TABLET PO SCH (23:59)
[2018-10-05] MEDS: SENNA/DOCUSATE TABLET PO SCH (23:59)
[2018-10-06 01:04] VITALS: BP 99/61
[2018-10-06 02:31] VITALS: BP 92/54
[2018-10-06] MEDS: CEFAZOLIN PMX 1GM/50ML 50 ML IVPB SCH (04:00)
[2018-10-06] MEDS: D5%-0.9% NACL+KCL 20MEQ 1,000 ML IV SCH ×3 (04:00→20:13)
[2018-10-06 05:35] LABS: BASOPHILS % (AUTO) 1 % (0-1); EOSINOPHILS # (AUTO) 0.06 x10^3/uL (0-0.4); EOSINOPHILS % (AUTO) 0 % (1-7); LYMPHOCYTES # (AUTO) 1.84 x10^3/uL (1-3.4); LYMPHOCYTES % (AUTO) 13 % (22-44); MD NO; MEAN CORPUSCULAR HEMOGLOBIN 29.2 pg (27.5-34.5); MEAN CORPUSCULAR VOLUME 85.8 fL (81-97); MEAN PLATELET VOLUME 7.2 fL (7.4-10.4); MONOCYTES # (AUTO) 1.26 x10^3/uL (0.2-0.8); MONOCYTES % (AUTO) 9 % (2-9); NEUTROPHILS # (AUTO) 11.46 x10^3/uL (1.8-6.8); NEUTROPHILS % (AUTO) 78 % (42-75); PLATELET COUNT 486 x10^3/uL (130-400); RED BLOOD COUNT 3.88 x10^6/uL (4.38-5.82); RED CELL DISTRIBUTION WIDTH 14.9 % (9.4-14.8)
[2018-10-06 05:48] LABS: ALBUMIN 2.9 g/dL (3.4-5.0); ANION GAP 3 mmol/L (5-15); CALCIUM 8.5 mg/dL (8.5-10.1); CHLORIDE 106 mmol/L (98-107)
[2018-10-06 05:52] LABS: ALANINE AMINOTRANSFERASE 16 U/L (12-78); ALKALINE PHOSPHATASE 106 U/L (45-117); BILIRUBIN,TOTAL 0.3 mg/dL (0.2-1.0); CREATININE 0.98 mg/dL (0.7-1.3); TOTAL PROTEIN 6.2 g/dL (6.4-8.2)
[2018-10-06] MEDS: INSULIN LISPRO 100 UNITS/ML, PEN SQ-INSULIN SCH ×5 (07:47→20:27)
[2018-10-06 08:34] VITALS: BP 116/72
[2018-10-06] MEDS: LISINOPRIL 5 MG TABLET PO SCH (08:37)
[2018-10-06] MEDS: SODIUM CHLORIDE FLUSH 10ML SYR IVF SCH ×2 (08:37→20:27)
[2018-10-06] MEDS: SENNA/DOCUSATE TABLET PO SCH ×2 (08:37→20:26)
[2018-10-06] MEDS: METHOCARBAMOL 750 MG in DEXTROSE 5% 100 ML IV SCH ×3 (08:38→16:01)
[2018-10-06] MEDS ORDERED: LISINOPRIL 5 MG TABLET PO SCH (09:00)
[2018-10-06 15:35] VITALS: BP 113/70
[2018-10-06] MEDS: HYDROcodone/APAP 5/325 TABLET PO PRN ×2 (16:11→20:13)
[2018-10-06] MEDS: metFORMIN 500 MG TABLET PO SCH (16:11)
[2018-10-06 19:28] VITALS: BP 109/75
[2018-10-06] MEDS: ATORVASTATIN 10 MG TABLET PO SCH (20:26)
[2018-10-07] MEDS: METHOCARBAMOL 750 MG in DEXTROSE 5% 100 ML IV SCH ×3 (00:10→15:41)
[2018-10-07] MEDS: HYDROcodone/APAP 5/325 TABLET PO PRN (00:13)
[2018-10-07 03:55] VITALS: BP 101/65
[2018-10-07] MEDS: HYDROcodone/APAP 10/325 MG TABLET PO PRN ×5 (04:28→22:16)
[2018-10-07 04:59] VITALS: BP 101/65
[2018-10-07 06:01] LABS: ANION GAP 6 mmol/L (5-15); CALCIUM 8.5 mg/dL (8.5-10.1); CHLORIDE 105 mmol/L (98-107); CREATININE 0.93 mg/dL (0.7-1.3)
[2018-10-07 06:03] LABS: BASOPHILS # (AUTO) 0.09 x10^3/uL (0-0.1); BASOPHILS % (AUTO) 1 % (0-1); EOSINOPHILS % (AUTO) 3 % (1-7); LYMPHOCYTES # (AUTO) 2.17 x10^3/uL (1-3.4); LYMPHOCYTES % (AUTO) 20 % (22-44); MD NO; MEAN CORPUSCULAR HEMOGLOBIN 28.7 pg (27.5-34.5); MEAN CORPUSCULAR HGB CONC 33.4 g/dL (33.2-36.2); MEAN PLATELET VOLUME 7.6 fL (7.4-10.4); MONOCYTES % (AUTO) 13 % (2-9); NEUTROPHILS # (AUTO) 6.97 x10^3/uL (1.8-6.8); NEUTROPHILS % (AUTO) 64 % (42-75); PLATELET COUNT 477 x10^3/uL (130-400); RED BLOOD COUNT 3.87 x10^6/uL (4.38-5.82); RED CELL DISTRIBUTION WIDTH 14.8 % (9.4-14.8)
[2018-10-07] MEDS: INSULIN LISPRO 100 UNITS/ML, PEN SQ-INSULIN SCH ×4 (07:00→20:17)
[2018-10-07 08:30] VITALS: BP 102/59
[2018-10-07] MEDS: D5%-0.9% NACL+KCL 20MEQ 1,000 ML IV SCH ×3 (08:30→22:14)
[2018-10-07] MEDS: metFORMIN 500 MG TABLET PO SCH ×2 (08:37→16:54)
[2018-10-07] MEDS: SENNA/DOCUSATE TABLET PO SCH ×2 (08:37→20:17)
[2018-10-07] MEDS: SODIUM CHLORIDE FLUSH 10ML SYR IVF SCH ×2 (08:38→20:16)
[2018-10-07] MEDS: LISINOPRIL 5 MG TABLET PO SCH (08:38)
[2018-10-07] MEDS ORDERED: TAMS-11 PO (09:52)
[2018-10-07] MEDS: TAMSULOSIN 0.4 MG CAP.ER.24H PO SCH (10:32)
[2018-10-07 14:20] VITALS: BP 108/66
[2018-10-07] MEDS: METHOCARBAMOL 750 MG TABLET PO SCH (16:04)
[2018-10-07 20:02] VITALS: BP 119/69
[2018-10-07] MEDS: ATORVASTATIN 10 MG TABLET PO SCH (20:17)
[2018-10-08] MEDS: METHOCARBAMOL 750 MG TABLET PO SCH ×2 (00:34→08:21)
[2018-10-08 02:10] VITALS: BP 104/72
[2018-10-08] MEDS: HYDROcodone/APAP 10/325 MG TABLET PO PRN ×2 (02:35→10:19)
[2018-10-08] MEDS: INSULIN LISPRO 100 UNITS/ML, PEN SQ-INSULIN SCH ×2 (06:38→11:00)
[2018-10-08 07:30] VITALS: BP 122/75
[2018-10-08] MEDS: LISINOPRIL 5 MG TABLET PO SCH (08:21)
[2018-10-08] MEDS: SENNA/DOCUSATE TABLET PO SCH (08:21)
[2018-10-08] MEDS: TAMSULOSIN 0.4 MG CAP.ER.24H PO SCH (08:21)
[2018-10-08] MEDS: metFORMIN 500 MG TABLET PO SCH (08:21)
[2018-10-08] MEDS ORDERED: HYDR-3307 PO (08:58)
[2018-10-08] MEDS ORDERED: METH750T87 PO (08:58)
[2018-10-08] MEDS: SODIUM CHLORIDE FLUSH 10ML SYR IVF SCH (09:00)
== END 2018-10-08 11:55 | disposition home or self-care (01) | DRG 459 ==
LOC: ORIP 08:32 → 4NOR 15:44 → DCLOUNGE 10-08 11:41
PROVIDERS: ADMIT Orthopaedic Surgery Orthopaedic Surgery of the Spine; ATTEND Orthopaedic Surgery Orthopaedic Surgery of the Spine
PROC: 0SG1071 Fusion of 2 or more Lumbar Vertebral Joints with Autologous Tissue Substitute, Posterior Approach, Posterior Column, Open Approach (ICD-10-PCS; principal; 2018-10-05 11:00)
DX: M48.061 Spinal stenosis, lumbar region without neurogenic claudication (principal); R53.2 Functional quadriplegia; M54.16 Radiculopathy, lumbar region; E11.9 Type 2 diabetes mellitus without complications; I10 Essential (primary) hypertension; N40.0 Benign prostatic hyperplasia without lower urinary tract symptoms; E78.5 Hyperlipidemia, unspecified; M19.90 Unspecified osteoarthritis, unspecified site; Z88.8 Allergy status to other drugs, medicaments and biological substances
CPT/HCPCS: 36415; 72100; 80048; 80053; 82962; 85025; C1713; G0378; J0171; J0690; J1100; J2001; J2250; J2270; J2405; J2704; J3010; J3260; J3370; J3490; J1815; J2800; J3480; J7120